=== PATIENT | female | born 1950 | race Caucasian/White ===

== ENCOUNTER 2016-08-31 09:47 | Inpatient (IN) | payer MEDICARE, OTHER ==
[~2016-08-31] VITALS: Ht 152.4 cm; Wt 87.9 kg
--- NOTE | ~2016-08-31 | DS ---
PATIENT'S NAME: AMARILYS SEALS [facility] AGE: 66 Y [address] ROOM: [address] [place] [id number] LOCATION: [facility] [place] ADMIT DATE: 08/31/2016 Discharge Summary DISCHARGE DATE: 09/14/2016 FAMILY PHYSICIAN: Zehra Herring MD ATTENDING PHYSICIAN: Zehra Herring PRINCIPAL DIAGNOSES: 1. Acute hypoxic respiratory failure due to bilateral pneumonia, organism unspecified. 2. Acute exacerbation of chronic obstructive pulmonary disease. 3. Acute blood loss anemia due to hematoma and bleeding into the rectus muscle due to anticoagulation and severe cough. 4. Status post 1 unit packed red blood cell transfusion. 5. Gastroesophageal reflux disease. 6. Coronary artery disease. 7. Hypertension. 8. Hyperlipidemia. 9. Diabetes mellitus. 10. Thrush. SUMMARY: Amarilys is a 66-year-old female who is admitted with acute respiratory failure with hypoxia due to bilateral pneumonia and acute exacerbation of COPD. See my H and P. she has multiple drug allergies and she was placed on vancomycin and aztreonam for broad-spectrum coverage. Her blood sugars were followed closely. She was placed on a sliding scale with insulin. She was given some IV fluids for hydration. Blood cultures done, sputum cultures done, all negative. She was given neb treatments with DuoNeb every 4 hours, albuterol every 2 hours as needed, and oxygen therapy. She is extremely short of breath and really unable to do much physically. She had a very severe violent cough and she had sudden onset of severe abdominal pain. A CT scan revealed a rectus muscle bleed. Her blood thinners were stopped at that point. Her hemoglobin was watched very closely. She did require 1 unit of packed red blood cells. Gradually, her breathing improved. Sputum cultures never did grow out anything and she completed 10 days of IV antibiotics. The episode where she had the bleed was on 09/05/2016. She also had an elevated amylase and lipase at that time, which resolved spontaneously. Cardiac workup at that time was also performed and was negative. Dr. Hillman was consulted with the abdominal bleed and she is to follow conservatively. She was switched from Vanco and Azactam to Rocephin on 09/05/2016 and antibiotic therapy was completed on 09/10/2016. She was given steroids IV and that was gradually tapered to oral steroids as she improved. Neb treatments decreased. She did get significantly agitated and upset. Part of that was she started being here and the other part is that she has to be in control of the situation and a lot of negotiations has to occur. She calmed down on 09/10/2016. Kidney functions were followed throughout her hospital stay. She PATIENT'S NAME: AMARILYS SEALS [facility] AGE: 66 Y [address] ROOM: [place] [address] LOCATION: [facility] [place] ADMIT DATE: 08/31/2016 Discharge Summary DISCHARGE DATE: 09/14/2016 FAMILY PHYSICIAN: Zehra Herring MD ATTENDING PHYSICIAN: Zehra Herring was able to be weaned off oxygen and I was ready to let her go home on 09/13/2016; however, then she developed some pretty severe epigastric pain and tightness. She was given Tums, GI cocktail, nitro, and Percocet. The GI cocktail and the Percocet helped and as of today she is feeling markedly better, her pain is much improved/resolved, she is up and around, she is off oxygen, and is back to baseline. At this time, she is much improved and ready to go home. DISMISSAL: Amarilys is dismissed on 09/14/2016 in improved condition. She will follow a regular/diabetic diet. Her activity will be as tolerated. She has been advised to stay out of the heat humidity as that will exacerbate her COPD. DISMISSAL MEDICATIONS: 1. Welchol 625 mg 2 tablets b.i.d. 2. Diltiazem XR 180 mg daily. 3. Folic acid 0.8 mg twice daily. 4. Lasix 40 mg daily. 5. Plaquenil 200 mg b.i.d. 6. Lantus insulin 5-25 units at h.s., depending on how her sugars are, and 5 units of Humalog as needed for sugars over 160. 7. Lisinopril 5 mg daily. 8. Methotrexate 10 mg b.i.d. on Tuesdays. 9. Lopressor 25 mg tabs 1/2 tablet b.i.d. 10. Nystatin 500,000 units q.i.d. 11. Pantoprazole 40 mg daily. 12. Prednisone 20 mg daily for the next 3 days then back down to 10 mg daily, her usual. 13. Lyrica 50 mg t.i.d. 14. Theophyline 400 mg b.i.d. 15. DuoNebs q.6 h. p.r.n. 16. Combivent 1 spray every 4 hours p.r.n. 17. Tylenol Extra Strength a 1000 mg q.i.d. p.r.n. 18. Tums as needed for pain. 19. Percocet 5/325 1-2 q.6 h. p.r.n. pain. 20. Simethicone gas relief q.i.d. p.r.n. 21. Fosamax 70 mg once weekly. 22. Aspirin 81 mg a day. 23. Effient 5 mg a day. 24. Albuterol nebulizer or inhaler q.4 h. p.r.n. 25. Guaifenesin 800 mg q.i.d. 26. Nitro 0.4 mg sublingual p.r.n. 27. Refresh tears q.i.d. p.r.n. 28. Rolaids p.r.n. 29. CPAP as at home. PATIENT'S NAME: AMARILYS SEALS [facility] AGE: 66 Y [address] ROOM: [place] [address] LOCATION: [facility] [place] ADMIT DATE: 08/31/2016 Discharge Summary DISCHARGE DATE: 09/14/2016 FAMILY PHYSICIAN: Zehra Herring MD ATTENDING PHYSICIAN: Zehra Herring FOLLOW UP: She will follow up with me in 1 week, sooner if problems, will work on getting medications, she needs the Daliresp and Dulera. PROGNOSIS: Prognosis in the short term is good and long-term guarded as she is very susceptible to respiratory infections and exacerbations of COPD. On a positive note, she does remain smoke free for the last several years. MD HARSH CORTEZ/neto /[id number] d: 09/15/16 0257 t: 09/17/16 1733, DISCHARGE SUMMARY
--- NOTE | ~2016-08-31 | HP ---
PATIENT'S NAME: MONSE SEALS [facility] AGE: 66 Y [address] ROOM: [place] [address] [place] [facility] [place]: 08/31/2016 History & Physical DISCHARGE DATE: FAMILY PHYSICIAN: Zehra Herring MD ATTENDING PHYSICIAN: Zehra Herring DATE OF SERVICE: 09/05/2016 CHIEF COMPLAINT: Abdominal wall pain. REVIEW OF RECORD: The patient is a pleasant 66-year-old young lady, who presented to the emergency room on 08/31/2016 complaining of shortness of breath and cough. She has a long-standing history of severe COPD, oxygen dependent. She has recently been treated in the outpatient with two different courses of antibiotics, was admitted to the hospital, found to have a pretty significant right lower lobe pneumonia. She has been on IV antibiotics. They also used aspirin as well as Lovenox for DVT prophylaxis. The patient has had progressive coughing and has developed an abdominal pain, mostly to the left of her lower midline abdominal wall. The patient's hemoglobin is 10.5. Dr. Herring suspected some intraabdominal process. A CT scan was performed, it showed 12 cm left rectus sheath hematoma. No free fluid into the peritoneal cavity. I was asked to render surgical opinion regarding treatment course. The patient says she has never had this before. PAST MEDICAL HISTORY: Illnesses: Adult onset diabetes, coronary artery disease, reflux disease, sleep apnea, COPD, tobacco abuse, rheumatoid arthritis, iron-deficiency anemia. PAST SURGICAL HISTORY: Operations: Laparoscopic cholecystectomy, tonsillectomy, EGD, carpal tunnel, cystoscopy, and heart catheterization. SOCIAL HISTORY: She has a remote smoking history. Quit about 2 years ago. Denies alcohol use. MEDICATION: Her medication list is noted on admission sheet. ALLERGIES: ZITHROMAX, CIPRO, , AND SULFA. PATIENT'S NAME: MONSE SEALS [facility] AGE: 66 Y [address] ROOM: [place] [address] [place] [facility] [place]: 08/31/2016 History & Physical DISCHARGE DATE: FAMILY PHYSICIAN: Zehra Herring MD ATTENDING PHYSICIAN: Zehra Herring REVIEW OF SYSTEMS: She denies any prior episodes of hematomas. Denies any change in her bowel or bladder function. No blood in her stools. PHYSICAL EXAMINATION: GENERAL: A 66-year-old young lady who has some evidence of respiratory distress. She has nasal cannula oxygen. HEENT: Her mucous membranes are dry. NECK: Supple. I do not feel any adenopathy. LUNGS: Have diminished breath sounds. Few crackles in the right base. ABDOMEN: Mildly obese. She has a small incisional hernia at her umbilicus, reducible, only preperitoneal fat likely within it. She has some developing erythema or ecchymosis, just in the left of the lower midline abdominal wall with tenderness on direct palpation. It is not well delineated. EXTREMITIES: No peripheral edema. IMAGING DATA: Review of the CT scan with Dr. Aguilar revealed a 12 cm left rectus sheath hematoma. No extravasation into the peritoneal cavity. IMPRESSION: Abdominal wall hematoma with chronic cough on anticoagulation. Conservative measures, just observation. Serial hemoglobins if there is any change in her vitals. Her hemoglobin now is 10.5. The should reabsorb with time, low chance of breaking into the peritoneal cavity or infection. Thank you very much for allowing us to participate in her care. DAVE LO MD WTS/modl /[id number] D: 237 T: 744 HISTORY & PHYSICAL
--- NOTE | ~2016-08-31 | ER ---
PATIENT'S NAME: MONSE SEALS [facility] AGE: 66 Y [address] ROOM: [place] [address] [place] [facility] [place]: 08/31/2016 ER/Outpatient Report DISCHARGE DATE: FAMILY PHYSICIAN: Zehra Herring MD ATTENDING PHYSICIAN: Zehra Herring Time of Arrival: 0947 hours. Time of Evaluation: 0950 hours. CHIEF COMPLAINT: Shortness of breath and cough. HISTORY OF PRESENT ILLNESS: The patient is a 66-year-old female, who presents to the emergency department today with chief complaint of shortness of breath and cough. The patient has a long history of COPD. The patient reports she has been having cough and shortness of breath for about a month. She has had 2 different antibiotic courses of doxycycline. She reports about 12 to 18 hours prior to arrival, she developed some worsening symptoms as she was very short of breath, wheezing. She has a nonproductive cough. Denies any fevers. Does report some chills. She is having muscle aches in her arms and shoulders. Denies any nausea or vomiting. No diarrhea or constipation. The patient does report that she takes her oxygen saturations at home and they were in the upper 70s last night and 80s this morning. She does not wear oxygen at home. PAST MEDICAL HISTORY: Adult onset diabetes, coronary artery disease, gastroesophageal reflux disease, obstructive sleep apnea, osteoporosis, dyslipidemia, hypertension, allergic rhinitis, rheumatoid arthritis, coronary artery disease, osteoporosis, neuropathy, and iron deficiency anemia. PAST SURGICAL HISTORY: Heart cath in 2011, carpal tunnel in 1989, cystoscopy in 1969, EGD in 2011 and 2013, cholecystectomy in 1998, wrist and hand surgery, and tonsillectomy. FAMILY HISTORY: Mother with severe peripheral vascular disease, COPD, coronary artery disease, rheumatoid arthritis, and osteoporosis. Father with coronary artery disease. SOCIAL HISTORY: The patient used to smoke very heavily, quit about a year and half ago. Denies any alcohol or illicit drug use. ALLERGIES: AUGMENTIN, ZITHROMAX, CIPRO, AVELOX, OMNI-PAC, AND SULFA. PATIENT'S NAME: MONSE SEALS [facility] AGE: 66 Y [address] ROOM: [place] [address] [place] [facility] [place]: 08/31/2016 ER/Outpatient Report DISCHARGE DATE: FAMILY PHYSICIAN: Zehra Herring MD ATTENDING PHYSICIAN: Zehra Herring MEDICATIONS: 1. Acetaminophen. 2. Combivent. 3. Fosamax. 4. Aspirin. 5. Welchol. 6. Cardizem. 7. Lasix. 8. Prinivil. 9. Methotrexate. 10. Effient. 11. Lyrica. 12. Advair. 13. Germain-Dur. 14. Albuterol. 15. Guaifenesin. 16. Nitrostat. 17. CPAP. 18. Lopressor. 19. Atrovent. 20. Plaquenil. 21. Folic acid. 22. Restore Tears. 23. Gas Relief. 24. Deltasone. 25. Humalog. 26. Lantus. PRIMARY CARE DOCTOR: Zehra Herring M.D. REVIEW OF SYSTEMS: All systems are reviewed by myself and are negative with the exception of those discussed in HPI and past medical history. PHYSICAL EXAMINATION: VITAL SIGNS: Weight 82 kg, blood pressure 138/74, pulse 68, respiratory rate 32, temperature 97.6, and oxygen saturation 89% to 91% on room air. GENERAL: The patient is a 66-year-old female, appears older than stated age, obese, in moderate acute respiratory distress. HEENT: Normocephalic and atraumatic. Pupils are equal, round, and reactive to light. Nares are patent bilaterally. TMs are clear. Oropharynx is clear. NECK: Supple. There is no nuchal rigidity. CARDIOVASCULAR: Regular rate and rhythm. No murmurs, rubs, or gallops. PATIENT'S NAME: MONSE SEALS [facility] AGE: 66 Y [address] ROOM: [address] [address] [place]: [facility] [place] DATE: 08/31/2016 ER/Outpatient Report DISCHARGE DATE: FAMILY PHYSICIAN: Zehra Herring MD ATTENDING PHYSICIAN: Zehra Herring LUNGS: Diminished diffusely with coarse crackles noted. ABDOMEN: Soft, nontender, and nondistended. No rebound, rigidity, or guarding. MUSCULOSKELETAL: The patient moves all 4 extremities. SKIN: Warm and dry. LABORATORY DATA AND X-RAYS: One-view chest x-ray was obtained. There is evidence of patchy bibasilar opacity, greater on the left, consistent with infiltrate and atelectasis. There are emphysematous changes in the lungs. CBC: White blood cell count 11.2, otherwise normal. Coags are normal. CMP is normal. LFT is normal. Magnesium is normal. Cardiac enzymes are normal. EKG is obtained, interpreted by myself at 1025 hours, shows sinus rhythm with a rate of 64, normal axis, WV interval 211, otherwise normal interval. There is T-wave inversions noted in V1, V2, V3. No significant changes from 02/10/2016. ABG; 7.44/43/107/29.2/31/4.5. ProBNP is normal. Lactate is 2.0. D-dimer is normal. Procalcitonin is less than 0.05. IMPRESSION: 1. Bibasilar pneumonia. 2. Acute exacerbation of chronic obstructive pulmonary disease. 3. Acute hypoxic respiratory failure. 4. Initial visit. EMERGENCY DEPARTMENT COURSE: The patient was brought back to the examination room. Seen and evaluated by myself. IV was established. Laboratory analysis and imaging are obtained as described above. The patient was given 2 DuoNeb breathing treatments back to back. The patient was given 125 mg of Solu-Medrol en route by EMS. The patient was given a liter of normal saline. She was started on Azactam 2 grams IV as well as vancomycin 1500 mg IV. I have discussed results with the patient and recommended admission to the hospital for further evaluation, treatment, and management. I have contacted Dr. Zehra Herring, the patient's primary care doctor. She does agree to accept the patient for further evaluation, treatment, and management. DISPOSITION: The patient was admitted under the care of Dr. Herring in stable condition. DO RUSSEL YOUNG/neto PATIENT'S NAME: MONSE SEALS [facility] AGE: 66 Y [address] ROOM: [place] [address] [place]: [facility] [place] DATE: 08/31/2016 ER/Outpatient Report DISCHARGE DATE: FAMILY PHYSICIAN: Zehra Herring MD ATTENDING PHYSICIAN: Zehra Herring /[id number] d: 08/31/16 193 t: 09/03/16 0920, OUTPATIENT REPORT
--- NOTE | ~2016-08-31 | CON ---
PATIENT'S NAME: MONSE SEALS [facility] AGE: 66 Y [address] ROOM: [place] [address] LOCATION: [facility] [place] ADMIT DATE: 08/31/2016 Consultation DISCHARGE DATE: FAMILY PHYSICIAN: Zehra Herring MD ATTENDING PHYSICIAN: Zehra Herring DATE OF CONSULTATION: 09/06/2016 REASON FOR REFERRAL: Respiratory issues. HISTORY OF PRESENT ILLNESS: The patient is a 66-year-old woman with a history of chronic obstructive pulmonary disease. She is hospitalized at this time with an exacerbation of her COPD but also has severe abdominal pain. She was found to have a retroperitoneal hematoma, apparently related to heavy coughing. She also has a pneumonia for which she is under treatment. She had increased O2 requirements last night, which responded to an increase in oxygen delivery. An arterial blood gas did not demonstrate acute ventilatory decompensation. PAST MEDICAL HISTORY: Please refer to the admission history and physical exam. FAMILY HISTORY: Noncontributory. PHYSICAL EXAMINATION: GENERAL: Elderly agitated woman due to pain. ENT: Unremarkable. NECK: Normal. CHEST: Hyperinflated lungs, a few rhonchi. HEART: Regular rate and rhythm. ABDOMEN: Tender to deep palpation. Bowel sounds are present. EXTREMITIES: Mild edema. ASSESSMENT: Exacerbation of chronic obstructive pulmonary disease, pneumonia, abdominal pain due to retroperitoneal hematoma. PLAN: Pain control. We will add guaifenesin to try to thin secretions and make it easier for her to clear them. We will follow with you. [facility] AGE: 66 Y [address] ROOM: [place] [address] LOCATION: [facility] [place] ADMIT DATE: 08/31/2016 Consultation DISCHARGE DATE: FAMILY PHYSICIAN: Zehra Herring MD ATTENDING PHYSICIAN: Zehra Herring MD RYLEE DRUMMOND/neto /[id number] d: 09/06/16 1248 t: 09/11/16 0827, CONSULTATION REPORT
[~2016-08-31 09:47] MED LIST changes: -CLARITIN10 MG PO; -DELTASONE20 M1 PO; -DELTASONE20 MG PO; -DULERA 200 MCG/51 EA INH; -DUONEB INH; -NYSTATIN100000 UNI PO; -PERCOCET 5-3251 EACH PO; -PROTONIX40 MG PO; -ROLAIDS CHEWAB1 EACH PO; -TUMS REGULAR ST1 TAB PO
[2016-08-31 10:13] LABS: BASOPHIL # 0.1 K/uL (0.0-0.2); BASOPHIL % 1.1 %; EOSINOPHIL # 0.4 K/uL (0.0-0.5); EOSINOPHIL % 3.4 %; HEMATOCRIT 40.8 % (33.0-46.0); HEMOGLOBIN 12.5 g/dL (10.0-15.0); IMMATURE GRANULOCYTE # 0.1 K/uL (0.0-0.3); IMMATURE GRANULOCYTE % 0.4 %; LYMPHOCYTE # 1.5 K/uL (0.8-4.0); LYMPHOCYTE % 13.3 %; MCH 24.6 pg (27.0-34.0); MCHC 30.6 gm/dL (32.0-36.5); MCV 80.3 fl (83.0-98.0); MONOCYTE # 0.9 K/uL (0.0-1.0); MONOCYTE % 8.1 %; MPV 8.7 fl (9.4-12.4); NEUTROPHIL # (ANC) 8.2 K/uL (1.8-7.8); NEUTROPHIL % 73.7 %; NRBC % 0 /100WBC (0-0.00); PLATELET COUNT 265 K/uL (150-450); RDW-CV 16.2 % (11.9-14.6); WBC 11.2 K/uL (4.0-11.0)
[2016-08-31 10:14] LABS: RBC 5.08 M/uL (3.50-5.50)
[2016-08-31 10:23] LABS: INR - (THERAPEUTIC) 0.94 (0.92-1.07); PROTIME 9.9 SECONDS (9.8-11.4); PTT 24 SECONDS (25-32)
[2016-08-31 10:32] LABS: ALBUMIN 3.6 gm/dL (3.5-5.0); ALK PHOS 76 IU/L (33-138); ALT 33 IU/L (12-78); ANION GAP 10.7 (10.0-19.0); AST 24 IU/L (10-40); BLOOD UREA NITROGEN 13 mg/dL (6-24); CALCIUM 8.8 mg/dL (8.5-10.5); CHLORIDE 103 mMol/L (96-110); CO2 30 mMol/L (22-32); CPK 116 IU/L (21-215); CREATININE 0.7 mg/dL (0.5-1.1); ESTIMATED GFR (MDRD EQUATION) > 60; MAGNESIUM 2.1 mg/dL (1.8-2.6); POTASSIUM 4.7 mMol/L (3.7-5.1); SODIUM 139 mMol/L (135-145); TOTAL BILIRUBIN 0.5 mg/dL (0.0-1.5); TOTAL PROTEIN 6.9 g/dL (6.0-8.4)
[2016-08-31 10:34] LABS: BICARBONATE 29.2 mmol/L (18.0-23.0); PCO2 43 mmHg (35-45); PO2 107 mmHg (80-90)
--- NOTE | 2016-08-31 13:49 | NUR ---
Pt is 66 y/o female admit for COPD exacerbation for . Has many allergies. See chart. Red and yellow bracelets on. Pt alert and oriented x3. Hx DM but pt eats a regular diet. Resides at home by herself. Hx cardiac stent x1,KS,htn,CHF,hypercholest,sinus prob,diabetic neuropathy,COPD,home neb tx, pneumonia,chronic bronchitis,RA,anemia,leaking/dribbling,stress incontin, cough,DM. Does not wear O2 at home. Pt came through ED.
[2016-08-31] MEDS ORDERED: DUONEB INH (14:31)
[2016-08-31] MEDS ORDERED: PROTONIX40 MG PO (14:35)
[2016-08-31] MEDS ORDERED: ROLAIDS CHEWAB1 EACH PO (14:35)
--- NOTE | 2016-08-31 18:30 | NUR ---
Significant Event: Patient up to floor from E.R. at 1330. Patient on 2 liters of oxygen via nasal cannula. Per orders, patient is also a DNR. Meds restarted per orders except patient only wanted 2 welchol tonight with supper as this is what she does at home, and patient refused lovenox stating that usually Dr. Herring doesn't order it for her because patient will only take lovenox as a hip injection and patient refused to have it in her stomach. Patient also refusing calf pneumatics. IV to patient's right wrist, intact and patent. Patient is on accuchecks AC/HS. Supper blood sugar was 205 and patient got 4 units of novolog per moderate sliding scale. Follow up: Continue to monitor.
--- NOTE | 2016-09-01 04:42 | NUR ---
Patient alert and oriented x3, very pleasant and cooperative, currently on IV antibiotics, took tylenol this shift for back pain, gets short of breath very easily, coughs frequently but unable to bring anything up, lungs have inspiratory wheeze and expiratory wheezes, secondary diagnosis of COPD, up stand by assist to the bathroom, moves around frequenly currently on 3L
[2016-09-01 16:15] LABS: BILIRUBIN URINE NEGATIVE (NEGATIVE); BLOOD URINE NEGATIVE /UL (NEGATIVE); COLOR URINE YELLOW (YELLOW); GLUCOSE URINE 250 mg/dL (NEGATIVE); KETONE URINE NEGATIVE (NEGATIVE); LEUKOCYTES URINE NEGATIVE /UL (NEGATIVE); NITRITE URINE NEGATIVE (NEGATIVE); PROTEIN URINE NEGATIVE (NEGATIVE); SPEC GRAVITY URINE 1.015 (1.003-1.035); TURBIDITY URINE CLEAR (CLEAR); UROBILINOGEN URINE NORMAL (NORMAL)
--- NOTE | 2016-09-01 17:28 | NUR ---
Significant Event: Ambulates with SBA. Tylenol 650mg last at 1300. UA and Sputum cultures obtained and sent to lab this shift. Voids without difficulty. Harsh persistant cough, non productive most of shift. Remains on 3L O2. Accuchecks ACHS. Lung sounds with wheezes and crackles throughout. Follow up:
--- NOTE | 2016-09-02 04:42 | NUR ---
Significant Event: Patient refused the bed alarm, but states she will call if she needs assistance, denies pain. Harsh cough, need sputum sample, lab stated current on was contaminated. On antibiotics. On 3 liters of 02 with RT treatments. Daily weight and strict I/0 Follow up: Continue to monitor.
[2016-09-02 05:14] LABS: HEMATOCRIT 36.9 % (33.0-46.0); HEMOGLOBIN 11.1 g/dL (10.0-15.0); MCH 24.8 pg (27.0-34.0); MCHC 30.1 gm/dL (32.0-36.5); MCV 82.4 fl (83.0-98.0); MPV 9.2 fl (9.4-12.4); PLATELET COUNT 263 K/uL (150-450); RBC 4.48 M/uL (3.50-5.50); RDW-CV 16.5 % (11.9-14.6)
[2016-09-02 05:15] LABS: WBC 18.5 K/uL (4.0-11.0)
[2016-09-02 05:31] LABS: ALBUMIN 3.2 gm/dL (3.5-5.0); ALK PHOS 67 IU/L (33-138); ALT 40 IU/L (12-78); BLOOD UREA NITROGEN 15 mg/dL (6-24); CHLORIDE 110 mMol/L (96-110); CO2 25 mMol/L (22-32); CREATININE 0.6 mg/dL (0.5-1.1); ESTIMATED GFR (MDRD EQUATION) > 60; TOTAL PROTEIN 6.4 g/dL (6.0-8.4)
[2016-09-02 05:36] LABS: ANION GAP 9.6 (10.0-19.0); AST 48 IU/L (10-40); POTASSIUM 4.6 mMol/L (3.7-5.1); SODIUM 140 mMol/L (135-145); TOTAL BILIRUBIN 0.3 mg/dL (0.0-1.5)
[2016-09-02 05:48] LABS: ABSOLUTE NEUTROPHIL CT (ANC) 17.4 K/uL (1.8-7.8); BANDED NEUTROPHIL # 2.2 K/uL (0.0-0.1); BANDED NEUTROPHILS % 12 %; LYMPHOCYTE # 0.9 K/uL (0.8-4.0); LYMPHOCYTE % 5 %; MONOCYTE # 0.2 K/uL (0.0-1.0); SEGMENTED NEUTROPHIL # 15.2 K/uL (1.8-7.8); SEGMENTED NEUTROPHIL % 82 %
--- NOTE | 2016-09-02 16:57 | NUR ---
Significant Event: Independent in room. Tylenol and Gas X for abdominal discomfort. Robitussin for cough. BM X4 per patient report. IV restarted to L) hand. Remains on 3L O2. Follow up:
--- NOTE | 2016-09-03 05:01 | NUR ---
Significant Event: Patient continues with RT treatments, 02 at 3liters, antibiotics. Up to bathroom independently-refused bed alarm. Has harsh cough and wheezes throughout lungs davies. Alert and orientated, pleasant. Denies pain. Follow up: Continue to monitor.
--- NOTE | 2016-09-03 11:55 | NUR ---
Talked with pt nurse, she requests I visit later as pt upset right now over multiple things and nurse calling Dr Herring to talk with pt. Will try to visit this afternoon. Pt known to me, is up ad mynor in the room, and don't anticipate dc planning needs, but Dr Herring asked me to see her to talk about medication access program so I will wait and visit her later to see if she is interested in referral to them.
--- NOTE | 2016-09-03 14:08 | NUR ---
Introduced self and care management services to patient. Known to me from previous admissions. She voices her upset at someone coming in every 10 minutes and telling her what she needs to be doing, told her I am sorry today hasn't been a good day, and that while she doesn't have to do anything for me, I would like to give her information on some resources. Tells me she is aware of all the resources available and doesn't want them. Tells me she is filing for bankruptcy at the end of the month. Told her I am not sure what the conversation was between her and Dr Herring when she was admitted, but Dr Herring did write a consult asking hospice home care coordinator to give pt information on medication access program. She says she is aware of it and has looked into it but still has to spend too much money down to qualify and doesn't want it. Offered to give her a financial assistance form so the hospital can review and reduce her bill if she qualifies after insurance pays and she says she has done that before too and doesn't want to go through it again. Declines all offers of help at this point. Told her thats fine, that if she changes her mind to please ask for a hospice home care coordinator and we will be glad to give her information and help her get connected. She again declines. Her plan is to go home on discharge. Electric Blanket Packer will follow.
--- NOTE | 2016-09-03 17:02 | NUR ---
Significant Event: Independent in room. Very upset this morning, better now. Accuchecks ACHS. Remains on 3L. Follow up:
--- NOTE | 2016-09-03 17:05 | NUR ---
Nurses Note: Patient very upset this morning. Stated that she feels that others are making care decisions for her without her input. Ex: Patient refuses pneumatics and a nurse told her that she needed to wear them to prevent blood clots. She also refuses the IS and flutter valve as they make her cough more, a nurse was encouraging her to use them and the patient felt that the nurse wanted her to cough more and "break her ribs and punture a lung". The patient was then asking that we call Dr Herring and have her come back to the hospital as the patient just wanted to go home. Dr Herring notified and she stated to just allow the patient to calm back down and we were not to let patient leave AMA as she was too sick. Patient started to C/O headache, Morgan and Lyrica given. She then slept for a while and awoke calm.
--- NOTE | 2016-09-04 05:01 | NUR ---
Significant Event: PATIENT IS ALERT AND ORIENTED. ON 3L O2 PER NC. PATIENT IS UP AD DELBERT IN ROOM. USES CALL LIGHT APPROPRIATELY. EXPIRATORY WHEEZES THROUGHOUT. SPUTUM CULTURE OBTAINED LAST P.M. NORCO ADMINISTERED AT 0515 FOR PAIN FOLLOWING COUGHING. VOIDS WITHOUT DIFFICULTY. Follow up:
[2016-09-04 05:03] LABS: HEMATOCRIT 39.9 % (33.0-46.0); HEMOGLOBIN 11.8 g/dL (10.0-15.0); MCH 24.4 pg (27.0-34.0); MCHC 29.6 gm/dL (32.0-36.5); MCV 82.6 fl (83.0-98.0); MPV 9.1 fl (9.4-12.4); PLATELET COUNT 313 K/uL (150-450); RBC 4.83 M/uL (3.50-5.50); RDW-CV 17.1 % (11.9-14.6); WBC 14.5 K/uL (4.0-11.0)
[2016-09-04 05:18] LABS: ANION GAP 12.1 (10.0-19.0); BLOOD UREA NITROGEN 18 mg/dL (6-24); CALCIUM 8.1 mg/dL (8.5-10.5); CHLORIDE 104 mMol/L (96-110); CO2 30 mMol/L (22-32); CREATININE 0.8 mg/dL (0.5-1.1); ESTIMATED GFR (MDRD EQUATION) > 60; POTASSIUM 4.1 mMol/L (3.7-5.1); SODIUM 142 mMol/L (135-145)
[2016-09-04 06:17] LABS: ABSOLUTE NEUTROPHIL CT (ANC) 13.6 K/uL (1.8-7.8); BANDED NEUTROPHIL # 0.4 K/uL (0.0-0.1); BANDED NEUTROPHILS % 3 %; LYMPHOCYTE # 0.7 K/uL (0.8-4.0); LYMPHOCYTE % 5 %; MONOCYTE # 0.1 K/uL (0.0-1.0); SEGMENTED NEUTROPHIL # 13.2 K/uL (1.8-7.8); SEGMENTED NEUTROPHIL % 91 %
--- NOTE | 2016-09-04 16:44 | NUR ---
Significant Event: Alert/oriented x 3. Vitals stable. Remains on 3L, short of breath at rest and with activity. Inspiratory/expiratory wheezes throughout. Saline lock to right forearm flushes well. No c/o pain. Up ad mynor in room. Follow up:
--- NOTE | 2016-09-04 22:40 | NUR ---
Patient c/o abdominal pain that came on abruptly. Brenda JUAN had given a Bieber earlier & another Bieber offered, but patient refuses. She thinks she may have gas pain. Brenda JUAN offers ice bags to abdomen & patient tries to use the commode/bathroom to see if she can pass gas.
--- NOTE | 2016-09-04 22:56 | NUR ---
Significant Event: Patient up ad-mynor, receiving RT treatments. Expiratory and inspiratory wheezes, and coarse lung sounds. Accucheck 189 at HS. Multiple brusises to skin from lovenox shot on outer thighs and to bilateral arms from IV's. Started to report pain on right side of abdomen at 2155, [place] 1 tab given at 2205 and ice pack. Follow up: Monitor pain, lungs
--- NOTE | 2016-09-05 | NUR ---
Patient continues to c/o abdominal pain. Reported to charge nurse Lesvia. Dr Jose on-call physican notified & new orders received. Patient thinks that one of the antibiotics is causing this pain & does not want this antibiotic any more. Lung sounds have wheezes. Respiratory has been here given treatments. Patient relieved when she knows that CT scan to be done & also lab work.
[2016-09-05 00:39] LABS: HEMATOCRIT 37.5 % (33.0-46.0); HEMOGLOBIN 11.2 g/dL (10.0-15.0); MCH 24.3 pg (27.0-34.0); MCHC 29.9 gm/dL (32.0-36.5); MCV 81.5 fl (83.0-98.0); MPV 8.9 fl (9.4-12.4); PLATELET COUNT 314 K/uL (150-450); RDW-CV 16.9 % (11.9-14.6); WBC 15.3 K/uL (4.0-11.0)
--- NOTE | 2016-09-05 00:50 | NUR ---
Reports that her abdominal pain is a 22 out of 10 and cannot be reasoned with to rate her pain different. Morphine 2 mg IV given & patient very satisfied with results. She now rates her pain at an 8, and says that she can tolerate this.
[2016-09-05 00:57] LABS: CPK 361 IU/L (21-215)
[2016-09-05 01:01] LABS: BANDED NEUTROPHIL # 0.8 K/uL (0.0-0.1); BANDED NEUTROPHILS % 5 %; LYMPHOCYTE # 1.8 K/uL (0.8-4.0); LYMPHOCYTE % 12 %; MONOCYTE # 0.5 K/uL (0.0-1.0); SEGMENTED NEUTROPHIL # 12.2 K/uL (1.8-7.8); SEGMENTED NEUTROPHIL % 80 %
[2016-09-05 02:34] LABS: CPK 318 IU/L (21-215)
--- NOTE | 2016-09-05 04:20 | NUR ---
Morphine 2 mg IV given for c/o ambdominal pain that she rates an 8 out of 10. Reports that she is feeling way better from when this abdominal pain all started. Rests quietly in bed & remains NPO. Has been able to sleep for some periods of time tonight. She is aware that Dr will come in this morning & discuss her labs & CT results with her.
--- NOTE | 2016-09-05 05:04 | NUR ---
Significant Event:HS accucheck 189. Around 2240 began c/o abdominal pain that she rated a 22 out of 10. Lab work done, EKG & CT of abdomen. Is now NPO. Has been given Morphine 2 mg twice, last @ 0420. 289 IV antibiotic, 820 po & 1650 void. Did have a small BM last evening & a large BM on day shift. Is finally resting now. Is a DNR. IE wheezes. Has been using the bedside commode.
[2016-09-05 06:32] LABS: BASOPHIL % 0.1 %; HEMATOCRIT 34.7 % (33.0-46.0); HEMOGLOBIN 10.5 g/dL (10.0-15.0); IMMATURE GRANULOCYTE # 0.3 K/uL (0.0-0.3); IMMATURE GRANULOCYTE % 1.9 %; LYMPHOCYTE # 0.6 K/uL (0.8-4.0); LYMPHOCYTE % 4.1 %; MCH 24.2 pg (27.0-34.0); MCHC 30.3 gm/dL (32.0-36.5); MCV 80.1 fl (83.0-98.0); MONOCYTE # 0.7 K/uL (0.0-1.0); MONOCYTE % 4.7 %; MPV 8.6 fl (9.4-12.4); NEUTROPHIL # (ANC) 13.7 K/uL (1.8-7.8); NEUTROPHIL % 89.2 %; NRBC % 0 /100WBC (0-0.00); PLATELET COUNT 303 K/uL (150-450); RBC 4.33 M/uL (3.50-5.50); RDW-CV 16.6 % (11.9-14.6); WBC 15.4 K/uL (4.0-11.0)
[2016-09-05 12:52] LABS: HEMATOCRIT 32.3 % (33.0-46.0)
--- NOTE | 2016-09-05 14:16 | NUR ---
A-SCREENED D/T LOS ADMITTED FOR EXAC. OF COPD. LAST EVENING HAD SUDDEN ONSET OF ABD PAIN. CT SHOWED INFERIOR RECTUS SHEATH HEMATOMA. SURGERY CONSULT NOTED. HT: 60 IN. WT: 89.8 KG. BMI: 38.6 LABS REVIEWED: GLU 210, ALB 3.2, AMYLASE/LIPASE ELEVATED MEDS: WELCHOL, AZACTAM, LYRICA, PROTONIX, VANCO, NORMAL SALINE, MORPHINE, LEVEMIR, NORCO, TUMS, EFFIENT, LASIX DIET RX: CLEAR LIQUIDS. PO INTAKE PRIOR TO DIET BEING NPO THIS AM AND THEN CHANGED TO CLEAR LIQUIDS, WAS 75-100%. EST NUTR NEEDS: [id number] KCALS (15-20 KCALS/KG) 68-90 GM PROTEIN (1.5-2.0 GM/KG IBW) 1 ML FLUID/KCAL D-NOT AT NUTRITION RISK; NO NUTRITION DX I-ADVANCE DIET TOLERATED M/E-WILL ASSIST NEEDED
--- NOTE | 2016-09-05 15:55 | NUR ---
Significant Event: Patient alert and oriented. Patient c/o severe abdominal pain this morning and received Morphine 2 mg IV at [address] Herring here this morning and ordered a Morphine RETAIL SUPPORT MANAGER at 0.5 mg/hr with a 0.5mg bolus and a 10 min lockout. Patient had a total of 12.06 mg infused with 29 demands and 18 deliveries. Up to the commode with assist to void. Patient very short of breath with any activity or exertion. O2 at 3 l/nc. New order for Dr Hillman to consult for a rectus sheeth hematoma. Patient started on clear liquids and is tolerating it well. Denies nausea. Midline IV to her L) upper arm for IV Vancomycin which is not compatible with Morphine. Accuchecks have been 174 and 147 with 2 units of Novolog insulin given this morning. Hgb down to 10.5 this morning and 10.0 at noon. New order for Hgb q 6hrs with the next at 1800. We are to call if Hgb is <8.0. Follow up: Monitor pain
[2016-09-05 17:56] LABS: HEMATOCRIT 32.1 % (33.0-46.0); HEMOGLOBIN 9.7 g/dL (10.0-15.0)
[2016-09-05 22:02] LABS: BICARBONATE 33.5 mmol/L (18.0-23.0); PCO2 45 mmHg (35-45)
[2016-09-05 22:05] LABS: PO2 56 mmHg (80-90)
[2016-09-06 00:24] LABS: HEMATOCRIT 34.6 % (33.0-46.0); HEMOGLOBIN 10.2 g/dL (10.0-15.0)
--- NOTE | 2016-09-06 04:55 | NUR ---
Patient alert and oriented x3, at beginng of shift patient was exhausted and having trouble breathing, notified and she had consult done with the utilization review rn, he ordered arterial blood gases to be done, after calling the results he said it was ok to increase her oxygen, she is currently on 5L via nasal canula and is doing well, she has the morphine ANESTHETIC ASSISTANT, antibiotics changed to rocephin only, using commode for toileting due to increase abdominal pain when getting up, patient has a hematoma on an artery in her abdomen, andreat is wanting to go home fiday, refused foot pumps and bed exit alarm, does call for assistance when needed
[2016-09-06 06:16] LABS: HEMATOCRIT 32.9 % (33.0-46.0); HEMOGLOBIN 9.9 g/dL (10.0-15.0)
--- NOTE | 2016-09-06 06:56 | NUR ---
refused is due to abdominal pain
[2016-09-06 12:08] LABS: HEMATOCRIT 32.6 % (33.0-46.0); HEMOGLOBIN 9.8 g/dL (10.0-15.0)
--- NOTE | 2016-09-06 17:04 | NUR ---
AAOx3. Cooperative with cares. Up to BSC; refuses bed alarm. Refused shower/bath. PATRICIA midline s/l'd and LFA IV infusing. PATHOLOGY TECHNOLOGIST Morphine @ 0.5mg/0.5/10min LO. Refused IS and flutter valve, Mucinex, Lyrica, Lasix, Prinivil, Effient. Titrated O2 down to 3Ltrs.
[2016-09-06 18:26] LABS: HEMATOCRIT 31.4 % (33.0-46.0); HEMOGLOBIN 9.5 g/dL (10.0-15.0)
[2016-09-07 00:46] LABS: HEMATOCRIT 21.6 % (33.0-46.0); HEMOGLOBIN 6.5 g/dL (10.0-15.0)
[2016-09-07 06:14] LABS: HEMOGLOBIN 8.9 g/dL (10.0-15.0)
[2016-09-07 06:18] LABS: HEMATOCRIT 28.6 % (33.0-46.0)
--- NOTE | 2016-09-07 07:20 | NUR ---
Significant Event: A&O X3. AMBULATES WITH ONE ASSIST USES BEDSIDE COMMODE. ON 4 L OF O2. FURNITURE INSTALLER MORPHINE 0.5 DEMMAND 0.5 CONTINUOUS 10 MIN LOCK OUT. REFUSES BED ALARMS. VS WNL. REFUSED FOOT PUMPS. Follow up:
--- NOTE | 2016-09-07 16:00 | NUR ---
AAOx3. Cooperative with cares. SBA to BSC. Midline to FRANCISCA w/GBR and fluids TKO w/SENIOR CLINICAL SAS PROGRAMMER Morphine @0.5/0.5/10min LO. On 3liters O2. Scattered ecchymosis; blood thinners held again today. VSS, afebrile, denies N/V/D. No PRN meds given.
[2016-09-08 05:23] LABS: HEMATOCRIT 25.1 % (33.0-46.0); HEMOGLOBIN 7.5 g/dL (10.0-15.0)
--- NOTE | 2016-09-08 08:18 | NUR ---
Significant Event: Pt alert and oriented. Cont morphine ENVIRONMENTAL HEALTH TECHNICIAN. Refuses to have bed alarm and pneumatics on. Cont on 3 liters 02, lungs remain wheezy. At shift change this morning pt was angry and upset, Dr. Cuevas in to talk with pt. Follow up:
--- NOTE | 2016-09-08 19:09 | NUR ---
Significant Event: Patient alert and oriented. Patient was very angry this morning and thought the COMBINATION MAN "was laughing at me" and did not want her in the room. As the day progressed patient became more cooperative and pleasant. Dr Cuevas here this morning and ordered patient to have a bar, Lasix 40 mg IV x 2 doses with the last at 1640 and patient to receive 1 unit of PRBC's for a Hgb of 7.5. New order for Percocet and 1 tab given x 2 doses with the last at 1358. NUTRITION TEACHER of Morphine changed to demand only with 0.5 mg bolus and a 10 min lockout. Patient had a total of 8.66 mg infused with 17 demands and 10 deliveries. Bruising noted to bilateral hips and lower abdomen, and to bilateral labia and bilateral arms. O2 at 3 l/nc with sats at 87-93%. Patient has a harsh cough and expiratory wheezes bilaterally. Accuchecks were 100, 147 and 260 with 10 units of insulin given. Increased to an aggressive sliding scale of Novolog insulin. Follow up: H&H at [address] if < or = 8.
[2016-09-08 19:42] LABS: HEMATOCRIT 29.8 % (33.0-46.0); HEMOGLOBIN 9.4 g/dL (10.0-15.0)
--- NOTE | 2016-09-09 03:56 | NUR ---
SIGNIFICANT EVENT: Pt alert &oriented. VSS on 3L. Morphine SECURITY STRATEGIST - 0.5 mg demand dose only, 10 minute lockout - 2 demands/2 deliveries for total of 1 mg. Mendez draining light to yellow urine, 3100 out this shift - had 2 doses of IV lasix yesterday. ACHS accuchecks, aggressive SS - HS BG of 195 required 4 units novolog. Rec'd blood yesterday - Hgb 9.4 as of 1937 on 09/08/16. 1PA to transfer. Pleasant and cooperative with cares.
[2016-09-09 05:47] LABS: BASOPHIL % 0.1 %; EOSINOPHIL # 0.1 K/uL (0.0-0.5); EOSINOPHIL % 0.3 %; HEMATOCRIT 31.1 % (33.0-46.0); HEMOGLOBIN 9.4 g/dL (10.0-15.0); IMMATURE GRANULOCYTE # 0.8 K/uL (0.0-0.3); IMMATURE GRANULOCYTE % 4.3 %; LYMPHOCYTE # 1.9 K/uL (0.8-4.0); LYMPHOCYTE % 10.9 %; MCH 24.7 pg (27.0-34.0); MCHC 30.2 gm/dL (32.0-36.5); MCV 81.6 fl (83.0-98.0); MONOCYTE # 1.5 K/uL (0.0-1.0); MONOCYTE % 8.6 %; NEUTROPHIL # (ANC) 13.3 K/uL (1.8-7.8); NEUTROPHIL % 75.8 %; NRBC % 0.3 /100WBC (0-0.00); PLATELET COUNT 354 K/uL (150-450); RBC 3.81 M/uL (3.50-5.50); RDW-CV 16.3 % (11.9-14.6)
[2016-09-09 05:48] LABS: WBC 17.6 K/uL (4.0-11.0)
[2016-09-09 05:59] LABS: ANION GAP 9.6 (10.0-19.0); BLOOD UREA NITROGEN 17 mg/dL (6-24); CHLORIDE 101 mMol/L (96-110); CO2 32 mMol/L (22-32); CREATININE 0.6 mg/dL (0.5-1.1); ESTIMATED GFR (MDRD EQUATION) > 60; POTASSIUM 3.6 mMol/L (3.7-5.1); SODIUM 139 mMol/L (135-145)
[2016-09-09 12:54] LABS: HEMOGLOBIN 8.1 g/dL (10.0-15.0)
[2016-09-09 12:55] LABS: HEMATOCRIT 26.4 % (33.0-46.0)
--- NOTE | 2016-09-09 19:16 | NUR ---
Significant Event: Patient alert and oriented and has been cooperative with cares. Patient again irritable/angry regarding care when talking to Dr Cuevas this morning. Patient was more pleasant the remainder of the shift. Patient was in the recliner during bedside report this morning and she attempted to get out of the chair this afternoon to go back to bed and the TABS alarm went off and the patient got very upset that someone put the alarm pad in the chair and it "scared me". Assisted to back to bed with 2 assist and transferred fair. Patient short of breath with minimal exertion. Mendez patent and drains clear yellow urine with a total of 1100 ml out for the shift. Morphine GUITAR MAKER to demand only and she had a total of 1 mg infused with 2 demands and deliveries. Percocet 1 tab given x 2 doses with the last at 1649. Hgb at 9.4 this morning. Muceninx dc'd per patient request. Prednisone decreased to 20 mg daily. Follow up:
--- NOTE | 2016-09-10 02:15 | NUR ---
SIGNIFICANT EVENT: Pt alert & oriented to place/person. VSS on 2L. Diabetic diet. Mendez patent, draining yellow urine. 2PA to transfer - bedside commode and chair. L) UA midline infusing NS at 20 mL/hr, intermittent IV antibiotics. No aggressive SS coverage for HS BG of 115. ACHS accuchecks. C/O staff not being in her room enough and that she hasn't had a bedside table (it has been in her room throughout stay).
[2016-09-10 05:52] LABS: HEMATOCRIT 29.4 % (33.0-46.0); HEMOGLOBIN 8.9 g/dL (10.0-15.0); MCH 25.1 pg (27.0-34.0); MCHC 30.3 gm/dL (32.0-36.5); MCV 83.1 fl (83.0-98.0); MPV 8.7 fl (9.4-12.4); PLATELET COUNT 301 K/uL (150-450); RBC 3.54 M/uL (3.50-5.50); RDW-CV 16.8 % (11.9-14.6)
[2016-09-10 05:54] LABS: WBC 17.9 K/uL (4.0-11.0)
[2016-09-10 06:07] LABS: BLOOD UREA NITROGEN 13 mg/dL (6-24); CALCIUM 7.6 mg/dL (8.5-10.5); CHLORIDE 105 mMol/L (96-110); CO2 31 mMol/L (22-32); CREATININE 0.5 mg/dL (0.5-1.1); ESTIMATED GFR (MDRD EQUATION) > 60; SODIUM 139 mMol/L (135-145)
[2016-09-10 06:37] LABS: ABSOLUTE NEUTROPHIL CT (ANC) 14.7 K/uL (1.8-7.8); BANDED NEUTROPHIL # 0.4 K/uL (0.0-0.1); BANDED NEUTROPHILS % 2 %; LYMPHOCYTE # 2.7 K/uL (0.8-4.0); LYMPHOCYTE % 15 %; MONOCYTE # 0.5 K/uL (0.0-1.0); SEGMENTED NEUTROPHIL # 14.3 K/uL (1.8-7.8); SEGMENTED NEUTROPHIL % 80 %
--- NOTE | 2016-09-10 16:56 | NUR ---
Significant Event: A/O X 3, this morning was very agitated and uncooperative. Mendez dc'd, CLAIMS ATTORNEY discontinued and allowed to ambulate in room. Mood was much better this afternoon. Gave 1 percocet at 0830 and 1530 with relief. Oxygen at 2 liters per NC. Short of breath with activity, power glide to L) upper arm. ACHS accuchecks with aggressive SS. 2 units given at 1700 blood glucose of 180. Scattered ecchymosis to arms, sides and legs. 2+ edema to lower extremities. WBC's 17.9 today, Hgb 8.9. Follow up:Pain control, continue plan of care.
--- NOTE | 2016-09-11 03:54 | NUR ---
PT. alert and oriented. 2L of O2 - tried to wean to 1L and sats went down to 85%. SBA/1 assist with walker. NO TENNIS DESK TEAM MEMBER. Mood was good this shift. No PRN pain meds given. 4 units of insulin given at HS. Aggressive sliding scale. Edema in lower extremities. Cooperative and pleasant with cares.
[2016-09-11 13:06] LABS: HEMATOCRIT 30.8 % (33.0-46.0); HEMOGLOBIN 9.5 g/dL (10.0-15.0)
[2016-09-11 13:18] LABS: BLOOD UREA NITROGEN 13 mg/dL (6-24); CALCIUM 8.3 mg/dL (8.5-10.5); CHLORIDE 108 mMol/L (96-110); CO2 22 mMol/L (22-32); CREATININE 0.5 mg/dL (0.5-1.1); ESTIMATED GFR (MDRD EQUATION) > 60; SODIUM 139 mMol/L (135-145)
--- NOTE | 2016-09-11 18:58 | NUR ---
I HAVE REVIEWED AND RANDI WITH CHARTING COMPLETED BY [facility] STUDENT HARJINDER VELARDE FROM [id number] JULIA JUAN
--- NOTE | 2016-09-11 19:07 | NUR ---
Significant Event: Patient alert and oriented x3. DNR but "may intubate for short time". Vital signs stable, slightly elevated BPs. On 2L O2. Pain rated at 8 throughout day, first stating abdominal pain, later with addition of leg pain. Percocet given at 0900 and 1455. L) midline saline locked. Daily weight taken on day shift 88.2 kg. Standby assist but patient does not use call light when ambulating or up to bathroom. Refuses bed alarm. Accuchecks ACHS, aggressive sliding scale. Patient refused therapy, up ad mynor in room. Diabetic diet, patient ate half of breakfast, most of lunch. Patient began first dose of Methotraxate this morning, hazardous drugs x48 hours. Follow Up: Wean O2, continue to monitor. Labs in am.
--- NOTE | 2016-09-12 02:56 | NUR ---
Alert and oriented. Cooperative pamela cares, likes to think she is calling the shots. Up independently with walker. 2ltr O2. Accuchecks ACHS, aggressive scale. Midline to upper left arm. Percocet Q6H. Continue plan of care, discharge when appropriate (refusing placement, states she is going home).
[2016-09-12 04:38] LABS: HEMATOCRIT 28.6 % (33.0-46.0); HEMOGLOBIN 8.8 g/dL (10.0-15.0)
[2016-09-12 04:52] LABS: ANION GAP 10.3 (10.0-19.0); BLOOD UREA NITROGEN 14 mg/dL (6-24); CHLORIDE 107 mMol/L (96-110); CO2 27 mMol/L (22-32); CREATININE 0.4 mg/dL (0.5-1.1); ESTIMATED GFR (MDRD EQUATION) > 60; POTASSIUM 4.3 mMol/L (3.7-5.1); SODIUM 140 mMol/L (135-145)
--- NOTE | 2016-09-12 13:46 | NUR ---
Reviewed chart and talked with patient. She tells me she is going home tomorrow as long as her blood level hasn't dropped (Hgb). Asked her if she has any concerns about going home or anything I can help her with. She tells me no, that her sister and neighbors can help her with what she needs and she will be fine. Offered option of Home Health following her at home, having nurse check on her, and she says no she doesn't want that. Cantilever Crane Operator will follow.
--- NOTE | 2016-09-12 13:48 | NUR ---
Significant Event: Pt c/o intermittent generalized discomfort, good relief with Percocet. Up ad mynor in room. To wean O2 to keep sat greater than 89%, was 86% on room air but with cough/deep breath, O2 sat was 89%. SOB with activity. Follow up:
--- NOTE | 2016-09-12 16:22 | NUR ---
A - NUTRITION FOLLOW-UP LABS: GLU 126, CREA 0.4, A1C 7.0%. MEDS: AGGRESSIVE SSI, PREDNISONE, LASIX DIET: REGULAR. INTAKE 54% X9 MEALS NOTED. HOWEVER, PT REPORTED VERY GOOD APPETITE, LIKES FOOD HERE. HAD GOOD/HEAVY BREAKFAST THIS MORNING SO SKIPPED LUNCH. DOES NOT USUALLY SKIP LUNCH. PER PT, DOES REQUEST SNACK AT AROUND 3AM EVERY DAY. EST NEEDS: [id number] KCAL, 68-90 GRAMS PROTEIN, FLUID NEEDS: 1ML/KCAL D - NO NUTRITION DIAGNOSIS. M/E - GOAL: PT WILL CONTINUE TO TOLERATE >75% OF MEALS IN 5-7 DAYS.
--- NOTE | 2016-09-13 04:25 | NUR ---
Significant Event: Patient is alert and oriented x 3. Up ad mynor in room. SOB with activity. Harsh, wet cough noted. BM x 1 this shift. Midline IV to left upper arm, saline locked. Percocet given for pain last at 0210. ACHS accuchecks. Patient is pleasant and cooperative with cares. Follow up:
[2016-09-13 09:31] LABS: HEMATOCRIT 29.2 % (33.0-46.0); HEMOGLOBIN 8.9 g/dL (10.0-15.0)
--- NOTE | 2016-09-13 14:34 | NUR ---
Significant Event: O2 sat 89-94% on room air. SOB with activity. Up ad mynor in room. Around 1015 pt c/o midsternal dull pain, VS stable. Dr. Herring came in and saw her, tums given and an RT tx at that time with min relief. EKG done and Nitro sub-lingual given x1 at 1115 with min relief, VS still WNL. MD notified, gave Percocet 2 tabs at 1240 and GI cocktail at 1320 with some relief. Had a large bm. Did have her on 2 liters O2 per MD for about and 1hr. According to night nurse, midline hurt when flushing but no infiltration noted but no blood return noted either. Will monitor pt symptoms. Follow up:
--- NOTE | 2016-09-14 05:18 | NUR ---
Significant Event: A/O X3 AND COOPERATIVE WITH CARES. UP AD DELBERT. SOB WITH ACTIVITY. O2 SATS 88-92% ON 1L/NC, SATS IMPROVED WHEN ASK PATIENT TO COUGH AND TAKE DEEP BREATH. LUNG SOUND CLEAR TO EXPIRATORY WHEEZE. MIDLINE TO L) UPPER ARM FLUSHES WELL AND NO PAIN WHEN FLUSHING. VOIDING WELL AND HAD BM X2 THIS SHIFT. SLEPT WELL THROUGH NIGHT. POSSIBLE DC HOME TODAY. Follow up:
[2016-09-14] MEDS ORDERED: NYSTATIN100000 UNI PO (08:46)
[2016-09-14] MEDS ORDERED: DALIRESP500 MCG PO (08:51)
[2016-09-14] MEDS ORDERED: TUMS REGULAR ST1 TAB PO (08:53)
[2016-09-14] MEDS ORDERED: PERCOCET 5-3251 EACH PO (09:02)
[2016-09-14] MEDS ORDERED: DULERA 200 MCG/51 EA INH (09:22)
--- NOTE | 2016-09-14 10:00 | NUR ---
I have reviewed and agree with charting done by Renee Pathak, [facility] [employer] [facility] student nurse for the shift from 0600 until patient was dismissed at 1020.
== END 2016-09-14 10:18 | disposition disaster alternative care site (69) | DRG 871 ==
LOC: GMED 09:47 → GMSU 11:43
PROVIDERS: Emergency Medicine; Family Medicine; Internal Medicine Pulmonary Disease; ADMIT Family Medicine
DX: A41.9 Sepsis, unspecified organism (principal); J96.01 Acute respiratory failure with hypoxia; K66.1 Hemoperitoneum; J18.9 Pneumonia, unspecified organism; I11.0 Hypertensive heart disease with heart failure; D62 Acute posthemorrhagic anemia; I50.9 Heart failure, unspecified; B37.9 Candidiasis, unspecified; J44.0 Chronic obstructive pulmonary disease with (acute) lower respiratory infection; J44.1 Chronic obstructive pulmonary disease with (acute) exacerbation; M79.81 Nontraumatic hematoma of soft tissue; I25.10 Atherosclerotic heart disease of native coronary artery without angina pectoris; K21.9 Gastro-esophageal reflux disease without esophagitis; E78.5 Hyperlipidemia, unspecified; M06.9 Rheumatoid arthritis, unspecified; E11.9 Type 2 diabetes mellitus without complications; G47.33 Obstructive sleep apnea (adult) (pediatric); Z90.49 Acquired absence of other specified parts of digestive tract; Z88.1 Allergy status to other antibiotic agents; Z88.2 Allergy status to sulfonamides; Z79.82 Long term (current) use of aspirin; Z87.891 Personal history of nicotine dependence
CPT/HCPCS: C1751; J0696; J1650; J1940; J2270; J2920; J2930; J3370; J7030; J7040; J7050; J7512; J8610; P9016; Q9967

== ENCOUNTER → 2016-08-31 | Outpatient (CLI) | payer MEDICARE, OTHER ==
[~2016-08-31] MED LIST: ADVAIR 250-501 EACH INH; ALBUTEROL2.5 MG/31 INH; ARAVA10 MG PO; ASPIRIN EC81 MG PO; ATROVENT HFA12.9 G1 INH; ATROVENT I0.5 MG/2.5 INH; CLARITIN10 MG PO; COMBIVENT RESPIM4 GM INH; CPAP INH; DALIRESP500 MCG PO; DELTASONE10 MG; DELTASONE10 MG PO; DELTASONE20 M1 PO; DELTASONE20 MG PO; DIFLUCAN100 MG PO; DILT-XR180 MG PO; DOXYCYCLINE100 MG PO; DULERA 200 MCG/51 EA INH; DUONEB INH; EFFIENT5 MG PO; FLORAJEN460 MG PO; FOLIC ACID0.8 MG PO; FOLIC ACID1 MG PO; FOSAMAX70 MG PO; GAS RELIEF125 MG PO; GAS RELIEF40 MG/0.6 PO; GLUCOPHAGE1000 MG PO; GLUCOPHAGE500 MG PO; GUAIFENESIN400 MG PO; HUMALOG100 UNIT/1 SUB-Q; HUMALOG100 UNIT/3 SUB-Q; IPRAT-ALBUT 0.5-3 ML INH; LANTUS (IN100 UNIT/M SUB-Q; LANTUS100 UNIT/1 SUB-Q; LASIX40 M1 PO; LOPRESSOR12.5 MG/0. PO; LOPRESSOR25 MG PO; LYRICA50 MG PO; METHOTREXATE2.5 MG PO; MUCINEX D ER T1 EACH PO; NEXIUM40 MG PO; NITROSTAT 0.40.4 MG SL; NITROSTAT0.3 MG SL; NYSTATIN100000 UNI PO; PERCOCET 5-3251 EACH PO; PLAQUENIL200 MG PO; PRINIVIL (ZESTRI5 MG PO; PROTONIX40 MG PO; PROVENTIL INHAL INH; PROVENTIL OR V6.7 GM INH; REFRESH TEARS15 ML OPHTH; ROLAIDS CHEWAB1 EACH PO; SALINE NASAL SP88 ML NOSE; THEOPHYLLINE400 MG PO; TUMS REGULAR ST1 TAB PO; TYLENOL EXTRA500 MG PO; VENTOLIN HFA8 GM INH; WELCHOL625 MG PO
== END | disposition disaster alternative care site (69) ==
LOC: GAMB 09:25
DX: R06.9 Unspecified abnormalities of breathing (principal); Z79.899 Other long term (current) drug therapy
CPT/HCPCS: A0422; A0425; A0427; J2930

== ENCOUNTER 2016-10-02 13:26 | Emergency (ER) | payer MEDICARE, OTHER ==
--- NOTE | ~2016-10-02 | ER ---
PATIENT'S NAME: [facility] AGE: 66 Y [address] ROOM: [place] [address] LOCATION: [facility] ADMIT DATE: 10/02/2016 ER/Outpatient Report DISCHARGE DATE: 10/02/2016 FAMILY PHYSICIAN: Zehra Herring MD ATTENDING PHYSICIAN: Brennan Nolan TIME OF ARRIVAL: 1326 hours. TIME OF EVALUATION: 1327 hours. CHIEF COMPLAINT: Abdominal pain and shortness of breath. HISTORY OF PRESENT ILLNESS: The patient is a 66-year-old female who presents to the emergency department today with a chief complaint of shortness of breath and abdominal pain. She reports upper abdominal pain. It feels somewhat like her pancreatitis. She has also had some shortness of breath and cough, is coughing up some phlegm. Denies any fevers or chills. No nausea or vomiting. No diarrhea or constipation. No blood in her stool. No dark, tarry stools. It is a sharp pain. PAST MEDICAL HISTORY: Adult-onset diabetes, coronary artery disease, gastroesophageal reflux disease, obstructive sleep apnea, osteoporosis, dyslipidemia, hypertension, allergic rhinitis, rheumatoid arthritis, neuropathy, and iron deficiency. PAST SURGICAL HISTORY: Heart cath in 2011, carpal tunnel in 1989, cystoscopy in 1969, EGD in 2011 and 2013, cholecystectomy in 1998, wrist and hand surgery, and tonsillectomy. FAMILY HISTORY: Severe peripheral vascular disease, COPD, coronary artery disease, rheumatoid arthritis, and osteoporosis. Father with coronary artery disease. SOCIAL HISTORY: The patient quit smoking a year and a half ago. Does have a history of heavy smoking use. Denies any alcohol or illicit drug use. ALLERGIES: AUGMENTIN, AZITHROMYCIN, CIPROFLOXACIN, AVELOX, OMNIPAQUE, AND SULFA. MEDICATIONS: PATIENT'S NAME: [facility] AGE: 66 Y [address] ROOM: [place] [address] LOCATION: ED ADMIT DATE: 10/02/2016 ER/Outpatient Report DISCHARGE DATE: 10/02/2016 FAMILY PHYSICIAN: Zehra Herring MD ATTENDING PHYSICIAN: Brennan Nolan Please see list. REVIEW OF SYSTEMS: All systems are reviewed by myself and are negative with the exception of those discussed in the HPI and Past Medical History. PHYSICAL EXAMINATION: VITAL SIGNS: Weight 83.7 kg. Blood pressure 116/65, pulse 74, respiratory rate 20, temperature 98.7, and oxygen saturation 87% on room air. GENERAL: The patient is a 66-year-old female who appears older than stated age, in [id number] acute respiratory distress. HEENT: Normocephalic, atraumatic. Pupils are equal, round, and reactive to light. Extraocular motions are intact. Nares are patent bilaterally. TMs are clear. Oropharynx is clear. NECK: Supple. There is no nuchal rigidity. CARDIOVASCULAR: Regular rate and rhythm. No murmurs, rubs, or gallops. LUNGS: Diminished diffusely. No rales or rhonchi. Positive expiratory wheezes. ABDOMEN: Soft, nontender, and nondistended. No rebound, rigidity, or guarding. MUSCULOSKELETAL: The patient moves all 4 extremities. SKIN: Warm and dry. There are no rashes or lesions noted. LABORATORY AND X-RAY DATA: Urinalysis shows 500 leukocyte esterase and 20 to 50 wbc's. Otherwise, negative. CK and CK-MB are normal, troponin is normal. ProBNP is normal. Coags are normal. Venous blood gas 7.49/38/77/70/5.4. Lactate is normal. CMP is unremarkable. LFTs normal. Amylase and lipase normal. CBC is normal. D-dimer is 1.19. Procalcitonin is less than 0.05. EKG is obtained and shows sinus rhythm with a rate of 70, left axis deviation, SC interval 208, normal interval. No ST elevation. There are T-wave inversions in V1, V2, and V3. CT scan of the chest was obtained. I have discussed the results with the radiologist. It shows no PE. There is some scarring of the right middle lobe in the bases with dependent atelectasis. There is multinodular goiter. CT scan of the abdomen and pelvis was also obtained. I have discussed results with the radiologist. There are 2 fluid cavities on the anterior abdominal wall consistent with the patient's previous hematoma. There is no evidence of gas. IMPRESSION: 1. Acute exacerbation of chronic obstructive pulmonary disease. 2. Anterior abdominal wall hematomas bilaterally. 3. Initial visit. EMERGENCY DEPARTMENT COURSE: PATIENT'S NAME: [facility] AGE: 66 Y [address] ROOM: [place], [place] [address] LOCATION: [facility] ADMIT DATE: 10/02/2016 ER/Outpatient Report DISCHARGE DATE: 10/02/2016 FAMILY PHYSICIAN: Zehra Herring MD ATTENDING PHYSICIAN: Brennan Nolan The patient was brought back to the examination room. Seen and evaluated by myself. IV was established. Laboratory analysis and imaging were obtained as described above. The patient was given DuoNeb breathing treatment with improvement in the patient's respiratory status. Her abdominal exam was repeated. She continues to have a nonsurgical abdominal exam at this time. She was given 125 mg of Solu-Medrol IV. I have discussed results with the patient. She is requesting to go home at this time. She reports her respiratory distress is at her baseline. She is very insistent on going home at this time. I have discussed with her and have written prescriptions for prednisone and doxycycline as well as Percocet, dispensing #10. I have discussed following up with Dr. Herring in 2 to 3 days for re-evaluation. Discussed return to care instructions including worsening symptoms or any other concerns, to return to the emergency department as soon as possible. The patient is agreeable. Her friend is agreeable who is here as well. They are without further questions at this time. DISPOSITION,: The patient is discharged to home in good condition. DO RUSSEL YOUNG/treverl /[id number] d: 10/02/16 1816 t: 10/03/16 0858, OUTPATIENT REPORT
[~2016-10-02 13:26] MED LIST changes: +DULERA 200 MCG/51 EA INH; +DUONEB INH; +NYSTATIN100000 UNI PO; +PERCOCET 5-3251 EACH PO; +PROTONIX40 MG PO; +ROLAIDS CHEWAB1 EACH PO; +TUMS REGULAR ST1 TAB PO
[2016-10-02 14:01] LABS: LACTATE 1.3 mEq/L (0.50-1.60); PCO2 38 mmHg (35-45)
[2016-10-02 14:02] LABS: PO2 77 mmHg (80-90)
[2016-10-02 14:03] LABS: BASOPHIL # 0.1 K/uL (0.0-0.2); BASOPHIL % 0.7 %; EOSINOPHIL % 0.4 %; HEMOGLOBIN 11.3 g/dL (10.0-15.0); IMMATURE GRANULOCYTE # 0.1 K/uL (0.0-0.3); IMMATURE GRANULOCYTE % 1.6 %; LYMPHOCYTE # 1.2 K/uL (0.8-4.0); LYMPHOCYTE % 15.7 %; MCHC 30.8 gm/dL (32.0-36.5); MCV 81.7 fl (83.0-98.0); MONOCYTE # 0.8 K/uL (0.0-1.0); MONOCYTE % 10.5 %; MPV 8.7 fl (9.4-12.4); NEUTROPHIL # (ANC) 5.3 K/uL (1.8-7.8); NEUTROPHIL % 71.1 %; NRBC % 0 /100WBC (0-0.00); PLATELET COUNT 316 K/uL (150-450); RDW-CV 16.8 % (11.9-14.6); WBC 7.5 K/uL (4.0-11.0)
[2016-10-02 14:09] LABS: HEMATOCRIT 36.7 % (33.0-46.0); MCH 25.2 pg (27.0-34.0); RBC 4.49 M/uL (3.50-5.50)
[2016-10-02 14:16] LABS: INR - (THERAPEUTIC) 0.94 (0.92-1.07); PROTIME 9.9 SECONDS (9.8-11.4); PTT 24 SECONDS (25-32)
[2016-10-02 14:20] LABS: BILIRUBIN URINE NEGATIVE (NEGATIVE); BLOOD URINE NEGATIVE /UL (NEGATIVE); COLOR URINE YELLOW (YELLOW); GLUCOSE URINE NEGATIVE (NEGATIVE); KETONE URINE NEGATIVE (NEGATIVE); LEUKOCYTES URINE 500 /UL (NEGATIVE); NITRITE URINE NEGATIVE (NEGATIVE); PROTEIN URINE NEGATIVE (NEGATIVE); SPEC GRAVITY URINE 1.005 (1.003-1.035); TURBIDITY URINE CLEAR (CLEAR); UROBILINOGEN URINE NORMAL (NORMAL)
[2016-10-02 14:25] LABS: ALBUMIN 3.5 gm/dL (3.5-5.0); ALK PHOS 82 IU/L (33-138); ALT 27 IU/L (12-78); ANION GAP 12.1 (10.0-19.0); AST 20 IU/L (10-40); BLOOD UREA NITROGEN 18 mg/dL (6-24); CALCIUM 8.4 mg/dL (8.5-10.5); CHLORIDE 104 mMol/L (96-110); CO2 25 mMol/L (22-32); CPK 56 IU/L (21-215); CREATININE 0.6 mg/dL (0.5-1.1); ESTIMATED GFR (MDRD EQUATION) > 60; POTASSIUM 4.1 mMol/L (3.7-5.1); SODIUM 137 mMol/L (135-145); TOTAL PROTEIN 6.8 g/dL (6.0-8.4)
[2016-10-02 14:26] LABS: TOTAL BILIRUBIN 0.4 mg/dL (0.0-1.5)
[2016-10-02 14:30] LABS: BACTERIA URINE RARE (NEGATIVE); EPITHELIAL URINE RARE #/HPF (NEGATIVE); RBC URINE NEGATIVE #/HPF (NEGATIVE); WBC URINE 20-50 #/HPF (NEGATIVE)
== END 2016-10-02 16:52 | disposition disaster alternative care site (69) ==
LOC: GMED 13:26
PROVIDERS: Emergency Medicine
DX: J44.1 Chronic obstructive pulmonary disease with (acute) exacerbation (principal); M79.81 Nontraumatic hematoma of soft tissue; I25.10 Atherosclerotic heart disease of native coronary artery without angina pectoris; K21.9 Gastro-esophageal reflux disease without esophagitis; E11.40 Type 2 diabetes mellitus with diabetic neuropathy, unspecified; E78.5 Hyperlipidemia, unspecified; I10 Essential (primary) hypertension; G47.33 Obstructive sleep apnea (adult) (pediatric); E61.1 Iron deficiency; Z79.4 Long term (current) use of insulin; Z79.82 Long term (current) use of aspirin; Z79.899 Other long term (current) drug therapy; Z88.1 Allergy status to other antibiotic agents; Z88.2 Allergy status to sulfonamides; Z88.8 Allergy status to other drugs, medicaments and biological substances; Z87.891 Personal history of nicotine dependence; Z90.49 Acquired absence of other specified parts of digestive tract; Z98.890 Other specified postprocedural states; Z90.89 Acquired absence of other organs
CPT/HCPCS: J2001; J2930; Q9967

== ENCOUNTER 2016-10-30 06:27 | Inpatient (IN) | payer MEDICARE, OTHER ==
[~2016-10-30] VITALS: Ht 154.9 cm; Wt 86.8 kg
--- NOTE | ~2016-10-30 | HP ---
PATIENT'S NAME: MONSE SEALS [facility] AGE: 66 Y [address] ROOM: [address] [address] LOCATION: [facility] ADMIT DATE: 10/30/2016 History & Physical DISCHARGE DATE: FAMILY PHYSICIAN: Zehra Herring MD ATTENDING PHYSICIAN: Sabrina Zamora DATE OF SERVICE: CHIEF COMPLAINT: Hypoxia and shortness of breath. HISTORY OF PRESENT ILLNESS: The patient is a pleasant 66-year-old female who has known severe COPD with multiple exacerbations. She was seen in the clinic last week and diagnosed with a UTI. She apparently was started on cefdinir and also given Rocephin. The patient states that over the course of taking the cefdinir she felt like her breathing has actually worsened over the last few days. She took a pill at 3:30 this morning and by 5 o'clock was feeling dizzy, had severe sore throat, and difficulty with breath. She presented to the emergency room at that time. She does have Omnicef on her clinic allergy list, but was unaware that the cefdinir was the same medication. PAST MEDICAL HISTORY: Significant for anemia, COPD with multiple exacerbations, diabetes mellitus type 2, esophageal spasm, essential hypertension, hyperlipidemia, hypertension, obstructive sleep apnea on CPAP, and rheumatoid arthritis. PAST SURGICAL HISTORY: Cardiac cath in 2011; carpal tunnel on the right x2, left x1; cystoscopy in ; EGD in 2011; endoscopy also in 2013; gallbladder in October 1998; left thumb trigger finger in the late ; stent placement; and tonsillectomy. CURRENT MEDICATIONS: 1. Acetaminophen 500 mg 2 tablets as needed. 2. Advair 250 one inhalation twice daily. 3. Albuterol nebulizer p.r.n. 4. Fosamax 70 mg weekly. 5. Aspirin 81 mg daily. 6. Cefdinir 300 mg, which she came in on, but is not her routine medication. 7. Combivent nebulizer. 8. DuoNeb. 9. Folic acid 1 mg 2 tablets daily. 10. Humalog per sliding scale. 11. Hydroxychloroquine 200 mg b.i.d. 12. Ipratropium per nebulizer. PATIENT'S NAME: MONSE SEALS [facility] AGE: 66 Y [address] ROOM: [address] [address] LOCATION: [facility] ADMIT DATE: 10/30/2016 History & Physical DISCHARGE DATE: FAMILY PHYSICIAN: Zehra Herring MD ATTENDING PHYSICIAN: Sabrina Zamora 13. Lantus per insulin protocol. 14. Lasix 40 mg 2 tablets daily. 15. Lisinopril 5 mg daily. 16. Lyrica 50 mg 3 times daily. 17. Methotrexate 2.5 mg weekly. 18. Metoprolol 25 mg 1/2 tablet b.i.d. 19. MiraLAX daily. 20. Nitroglycerin p.r.n. 21. Nystatin p.r.n. 22. Percocet 1-2 p.r.n. 23. Protonix 40 mg daily. 24. Prednisone 10 mg daily. 25. Refresh eyedrops. 26. Theophylline 400 mg b.i.d. 27. Welchol 625 mg 3 tablets b.i.d. ALLERGIES: TO PENICILLIN, ZITHROMAX, CIPRO, AVELOX, OMNIPAQUE, AND SULFA. FAMILY HISTORY: Significant for Alzheimer disease in a maternal aunt; mother with anemia as well as rheumatoid arthritis; aunt with melanoma as well as a maternal aunt with uterine cancer; cardiovascular disease in mother, father, and maternal aunt; COPD in mother; diabetes mellitus in uncle; hepatitis C infection, mother; Hyperlipidemia, mother; osteoporosis, mother. SOCIAL HISTORY: No alcohol. Coffee daily. Former smoker. She is . REVIEW OF SYSTEMS: GENERAL: No recent weight loss or weight gain. HEENT: Positive for sore throat. RESPIRATORY: Recent cough, shortness of breath, dyspnea on exertion, and chronic COPD. CARDIOVASCULAR: No chest pain. No palpitations. GI: No nausea, vomiting, diarrhea, constipation, bright red blood per rectum, or melena. : Negative. MUSCULOSKELETAL: Negative. PHYSICAL EXAMINATION: GENERAL: Alert female who is very pleasant and in no acute distress as long as sedentary in bed. HEENT: Mouth is clear. Pupils are reactive. NECK: Supple. PATIENT'S NAME: MONSE SEALS [facility] AGE: 66 Y [address] ROOM: [address] [address] LOCATION: [facility] ADMIT DATE: 10/30/2016 History & Physical DISCHARGE DATE: FAMILY PHYSICIAN: Zehra Herring MD ATTENDING PHYSICIAN: Sabrina Zamora HEART: Regular. LUNGS: Have expiratory wheezes present with diminished sounds in the bases. ABDOMEN: Soft, nontender, and nondistended. : Exam is not done. EXTREMITIES: No clubbing or cyanosis. Very mild edema. LABORATORY DATA: CBC: Hemoglobin of 11.6, white count of 7.7 with normal differential. Thyroid is stable. BMP is stable with glucose of 102. Blood gas; pH of 7.41, pCO2 of 43, PO2 of 62 on room air. Chest x-ray showed chronic pleural effusions, but actually looks better than January. ASSESSMENT: 1. Probable chronic obstructive pulmonary disease exacerbation. 2. Question allergic reaction to the Omnicef. 3. Diabetes. 4. Hyperlipidemia. 5. Hypertension. 6. Coronary artery disease. PLAN: We will admit the patient. She was given Rocephin in the emergency room. I believe she was also given Benadryl. We will have Respiratory Therapy see and currently we are going to hold her Rocephin at this time as I am unsure if this is actually a medication reaction versus a COPD exacerbation. I am going to give her Benadryl orally throughout the next 24 hours. She has received 1 dose of Solu-Medrol, we will do 1 more dose of Solu-Medrol tonight. Dr. Herring to resume care in the morning. MD DORIE MEZAM/modl /[id number] D: 834 T: 553 HISTORY & PHYSICAL
--- NOTE | ~2016-10-30 | ER ---
PATIENT'S NAME: MONSE OCHOA [facility] AGE: 66 Y [address] ROOM: [address] [address] LOCATION: [facility] ADMIT DATE: 10/30/2016 ER/Outpatient Report DISCHARGE DATE: FAMILY PHYSICIAN: Zehra Herring MD ATTENDING PHYSICIAN: Sabrina Zamora CHIEF COMPLAINT: Difficulty breathing. HISTORY OF PRESENT ILLNESS: Ms. Ochoa presents for evaluation of shortness of breath and a cough, and what she feels like is a swollen tongue. The symptoms had been going on for the last several days. They started when she was initiated on a new antibiotic cefdinir. She has been hospitalized multiple times recently. She has a history of very poorly controlled COPD. She states that she is very short of breath and she was working too hard and finally decided she was too tired to keep putting up with it and came in today. She states she did have some breathing treatments at home, but they have not helped her as much as she needs. She is a former smoker, quit 18 months ago. She follows with Dr. Herring for this issue. PAST MEDICAL HISTORY: Documented on the record and reviewed by me. SOCIAL HISTORY: Documented on the record and reviewed by me. MEDICATIONS: Documented on the record and reviewed by me. ALLERGIES: DOCUMENTED ON THE RECORD AND REVIEWED BY ME. REVIEW OF SYSTEMS: All systems were reviewed and negative except as noted in the HPI. PHYSICAL EXAMINATION: VITAL SIGNS: Blood pressure is elevated at 160s, systolic. Pulse is 98, respiratory rate is 28, temperature 97.7, and SpO2 is 85% on room air initially. GENERAL: A frail elderly female, sitting upright on the exam table with very coarse cough and moderate respiratory distress. NEUROLOGIC: The patient is awake and alert. She is very sharp witted. She has no focal deficits. No obvious asymmetry on exam. PATIENT'S NAME: MONSE OCHOA [facility] AGE: 66 Y [address] ROOM: [address] [place] [id number] LOCATION: [facility] ADMIT DATE: 10/30/2016 ER/Outpatient Report DISCHARGE DATE: FAMILY PHYSICIAN: Zehra Herring MD ATTENDING PHYSICIAN: Sabrina Zamora HEENT: Normocephalic and atraumatic. Eyes are PERRL. Oropharynx is clear. Tongue is not enlarged, not edematous. No angioedema. NECK: Supple. No stridor. Trachea is midline. CHEST: Heart is regular. Borderline tachycardia. No murmurs. LUNGS: Very coarse throughout with diffuse wheezes. ABDOMEN: Soft, nontender, and nondistended. BACK: Normal to inspection and palpation. EXTREMITIES: Warm and well perfused. Some edema of the lower extremities. SKIN: Appears to be grossly intact. LABORATORY DATA AND X-RAYS: Chest x-ray, actually improved from most recent. No clear infiltrates, and today, no pneumothorax per my review. Blood gas; pH 7.41, pCO2 is 43, and PO2 is 62 on room air. Sodium, potassium, chloride, and CO2 are all within normal limits. Glucose of 102. Creatinine and LFTs are unremarkable. CBC with no appreciable abnormalities of white count, hemoglobin, or platelets. Free T4 of 0.9. TSH is 3.880. EKG is notable for first-degree heart block, but otherwise sinus rhythm with no acute ischemic abnormalities. No morphologic changes compared to prior EKG from 10/02/2016. IMPRESSION: Chronic obstructive pulmonary disease exacerbation with dyspnea on exertion. EMERGENCY DEPARTMENT COURSE: The patient was seen and evaluated as above. She was given DuoNeb with Xopenex x2 and was feeling at her baseline, however, upon even mild exertion of standing she would desaturate to the upper 80s and with any walking as approximately 15 feet to the restroom, she desaturated to the mid 70s and was very dyspneic at that time. At that time, the decision was made to bring her into the hospital for further evaluation and treatment. Discussed the case with Dr. Zamora, on-call provider for Dr. Herring. Dr. Sabrina Zamora will admit the patient to the hospital for further evaluation and treatment. The patient was given Solu-Medrol in addition to some Benadryl as well as a dose of Rocephin for this issue. All questions answered, and the patient was admitted with no further issues. MD IVONNE LOVE/neto PATIENT'S NAME: MONSE OCHOA [facility] AGE: 66 Y [address] ROOM: [address] [address] LOCATION: [facility] ADMIT DATE: 10/30/2016 ER/Outpatient Report DISCHARGE DATE: FAMILY PHYSICIAN: Zehra Herring MD ATTENDING PHYSICIAN: Sabrina Zamora /[id number] d: 10/30/16 1118 t: 11/13/16 0949, OUTPATIENT REPORT
--- NOTE | ~2016-10-30 | DS ---
PATIENT'S NAME: AMARILYS SEALS [facility] AGE: 66 Y [address] ROOM: [address] [place], [place] [address] LOCATION: [facility]U ADMIT DATE: 10/30/2016 Discharge Summary DISCHARGE DATE: 11/02/2016 FAMILY PHYSICIAN: Zehra Herring MD ATTENDING PHYSICIAN: Sabrina Zamora PRINCIPAL DIAGNOSES: 1. Anaphylactic reaction due to cephalosporin antibiotic to include acute-on- chronic hypoxic respiratory failure. 2. Allergy to cefdinir. 3. Acute exacerbation of chronic obstructive pulmonary disease. 4. Coronary artery disease. 5. Hypertension. 6. Hyperlipidemia. 7. Gastroesophageal reflux disease. 8. Adult-onset diabetes mellitus. 9. Abdominal pain, musculoskeletal. 10. Rheumatoid arthritis. SUMMARY: Amarilys is a 66-year-old female, who in acute respiratory distress. She had been placed on oral cefdinir about 5 days prior to admit. She had significant throat and tongue swelling, hypoxia, difficulty breathing. She was treated with IV steroids, Benadryl, and admitted. Dr. Sabrina Zamora admitted her, please see her H and P. She was maintained on IV Solu-Medrol, oral Benadryl scheduled, and also added oral Claritin. She improved and was able to be weaned off oxygen as of 11/01. She continued on nebulizer treatments and all of her other chronic medical problems were addressed. She is significantly better, has been off oxygen for 24 hours, up and around, and at her usual level of health. At this time, she is ready to go home. DISMISSAL: Amarilys is dismissed on 11/02/2016 in improved condition. Her new medications include: 1. A burst and taper of prednisone. She will be on 40 mg for 2 days, 30 for 2 days, 20 for 2 days, and then back to 10 mg every day. 2. She will also be on loratadine 10 mg every day. 3. Her other home medications are unchanged and include:. a. Aspirin 81 mg a day. b. WelChol 625 b.i.d. c. Diltiazem XR 180 mg a day. d. Folic acid 0.8 mg b.i.d. e. Guaifenesin 800 mg q.i.d. f. Plaquenil 200 mg b.i.d. g. Lispro as needed for elevated sugars. h. Lisinopril 5 mg daily. PATIENT'S NAME: AMARILYS SEALS [facility] AGE: 66 Y [address] ROOM: [id number] [place], [place] [address] LOCATION: [facility]PCU ADMIT DATE: 10/30/2016 Discharge Summary DISCHARGE DATE: 11/02/2016 FAMILY PHYSICIAN: Zehra Herring MD ATTENDING PHYSICIAN: Sabrina Zamora i. Methotrexate 10 mg b.i.d. every Saturday. j. Lopressor 12.5 mg daily. k. Protonix 40 mg a day. l. Effient 5 mg daily. m. Lyrica 50 mg t.i.d. n. Theophylline 400 mg b.i.d. o. DuoNeb treatments every 4 hours as needed. p. Tylenol Extra Strength 1000 mg q.6 hours as needed. q. Alendronate 70 mg weekly. r. Lasix 40 mg daily. s. Albuterol inhaled or nebulized every 2 to 4 hours as needed. t. Nitroglycerin 0.4 mg sublingual p.r.n. u. CPAP at night. I. Refresh Tears q.i.d. v. Lantus as needed for elevated sugars. I. p.r.n. w. Tums p.r.n. x. Percocet p.r.n. She will follow up with me in one week. She will continue to follow a regular cardiac prudent/diabetic diet. Activity will be as tolerated. PROGNOSIS: Fair. MD HARSH CORTEZ/neto /[id number] d: 11/02/16 1227 t: 11/03/16 0833, DISCHARGE SUMMARY
[2016-10-30 06:57] LABS: BASOPHIL # 0.1 K/uL (0.0-0.2); BASOPHIL % 1.4 %; EOSINOPHIL # 0.2 K/uL (0.0-0.5); EOSINOPHIL % 2.3 %; HEMATOCRIT 38.3 % (33.0-46.0); HEMOGLOBIN 11.6 g/dL (10.0-15.0); IMMATURE GRANULOCYTE % 0.4 %; LYMPHOCYTE # 2.3 K/uL (0.8-4.0); LYMPHOCYTE % 29.3 %; MCH 24.6 pg (27.0-34.0); MCHC 30.3 gm/dL (32.0-36.5); MCV 81.1 fl (83.0-98.0); MONOCYTE # 0.9 K/uL (0.0-1.0); MONOCYTE % 11.2 %; MPV 8.6 fl (9.4-12.4); NEUTROPHIL # (ANC) 4.3 K/uL (1.8-7.8); NEUTROPHIL % 55.4 %; NRBC % 0 /100WBC (0-0.00); PLATELET COUNT 261 K/uL (150-450); RBC 4.72 M/uL (3.50-5.50); RDW-CV 16.4 % (11.9-14.6); WBC 7.7 K/uL (4.0-11.0)
[2016-10-30 06:57] LABS: BICARBONATE 27.3 mmol/L (18.0-23.0); PCO2 43 mmHg (35-45); PO2 62 mmHg (80-90)
[2016-10-30 07:11] LABS: ALBUMIN 3.5 gm/dL (3.5-5.0); ALK PHOS 75 IU/L (33-138); ALT 30 IU/L (12-78); ANION GAP 11.9 (10.0-19.0); AST 24 IU/L (10-40); BLOOD UREA NITROGEN 13 mg/dL (6-24); CALCIUM 8.3 mg/dL (8.5-10.5); CHLORIDE 104 mMol/L (96-110); CO2 25 mMol/L (22-32); CREATININE 0.6 mg/dL (0.5-1.1); POTASSIUM 3.9 mMol/L (3.7-5.1); SODIUM 137 mMol/L (135-145); TOTAL PROTEIN 6.7 g/dL (6.0-8.4)
[2016-10-30 07:15] LABS: TOTAL BILIRUBIN 0.3 mg/dL (0.0-1.5)
--- NOTE | 2016-10-30 10:38 | NUR ---
Pt is 66 y/o female admit for COPD exacerbation/acute hypoxia for . Pt alert and oriented x3. Resides at home by herself. Pt states she started taking an antibiotic for a UTI that had Omnicef in it and she didn't realize it did. She noticed she started having increased wheezing and trouble breathing each day she took it longer. Came to ED this am. Hx stent,HI,htn, hypercholest,CHF,CAD,edema,home neb tx,COPD,sleep apnea,gerd,RA,DM,neuropathy in legs and feet.
[2016-10-30 10:50] LABS: BILIRUBIN URINE NEGATIVE (NEGATIVE); BLOOD URINE NEGATIVE /UL (NEGATIVE); COLOR URINE STRAW (YELLOW); GLUCOSE URINE NEGATIVE (NEGATIVE); KETONE URINE NEGATIVE (NEGATIVE); LEUKOCYTES URINE NEGATIVE /UL (NEGATIVE); NITRITE URINE NEGATIVE (NEGATIVE); PROTEIN URINE NEGATIVE (NEGATIVE); SPEC GRAVITY URINE 1.005 (1.003-1.035); TURBIDITY URINE CLEAR (CLEAR); UROBILINOGEN URINE NORMAL (NORMAL)
--- NOTE | 2016-10-30 17:24 | NUR ---
Significant Event:PT ADMITTED WITH SOB AND COPD. O2 IS 95% ON 2L PER NC. UP WITH STANDBY ASSIST TO BR TO VOID. DENIES PAIN. A/O AND TALKATIVE. C/O SOB WITH ACTIVITY. AC AND HS BLOOD SUGARS. ATE MEAL W/O DIFFICULTY. ON ADMISSION C/O SWOLLEN TONGUE BUT STATES THAT HAS RETURNED TO NORMAL AND NO PROBLEMS EATING. INITIAL DOSED MEDS. IV RIGHT HAND. Follow up:
--- NOTE | 2016-10-31 05:37 | NUR ---
Significant Event: A/0X3. PATIENT REFUSED HAVING BED ALARM ON AFTER 2200. RESTED IN BED ALL OF SHIFT. SBA UP TO BR. AFEBRILE. VSS ON 2L. VERY SOB WITH ACTIVITY. EXP WHEEZES THROUGHOUT. PERCOCET GIVEN X2. LAST DOSE WAS AT 0122. PATIENT WAS ABLE TO FIND SOME RELIEF.IV TO R) HAND SL. VOIDED 2250 MLS OUT. 0 BM THIS SHIFT. Follow up: CONTINUE WITH PLAN OF CARE.
--- NOTE | 2016-10-31 12:49 | NUR ---
Pt sleeping. WIll stop back later. She is familiar to me from previous admissions and lives in [place] alone but has a good neighbor friend that helps out if needed and is independent with cares.
--- NOTE | 2016-10-31 17:37 | NUR ---
Significant Event: A/O. VSS on 2L/NC. Up 1 assist. AC/HS accuchecks. Denies pain. Good UOP. no complaints of throat swelling. continue plan of care Follow up:
--- NOTE | 2016-11-01 04:46 | NUR ---
A/O. HR 60s. SBP 110-130s. ROOM AIR TO 2L TROUGHOUT NIGHT. AUDIBLE WHEEZES IV LASIX ORDERED PATIENT REFUSED. REFUSED BED ALARM. REFUSES HELP TO BATHROOM. AD DELBERT SELF. ORDER TO KEEP SATS 88-90%. STATES "IM GETTING MYSELF OUT OF HERE TODAY"
[2016-11-01 10:06] LABS: BILIRUBIN URINE NEGATIVE (NEGATIVE); BLOOD URINE NEGATIVE /UL (NEGATIVE); COLOR URINE YELLOW (YELLOW); GLUCOSE URINE 250 mg/dL (NEGATIVE); KETONE URINE NEGATIVE (NEGATIVE); LEUKOCYTES URINE NEGATIVE /UL (NEGATIVE); NITRITE URINE NEGATIVE (NEGATIVE); PROTEIN URINE NEGATIVE (NEGATIVE); TURBIDITY URINE CLEAR (CLEAR); UROBILINOGEN URINE NORMAL (NORMAL)
--- NOTE | 2016-11-01 13:21 | NUR ---
PT UP TO BR BY SELF, REFUSES TO USE CALL LIGHT. HAD LARGE BM AND VOIDS PER BR. VERY SOB WITH ACCESSORY MUSCLES AND SKIN MOTTLED. 15MINUTES BEFORE SHE RECOVERED AND THEN O2 SATS 88% ON RA. REFUSES O2 MONITOR AND O2.
--- NOTE | 2016-11-01 17:28 | NUR ---
Significant Event:PT A/O. UA SENT TO LAB THIS MORNING AND NEGATIVE. BILATERAL LUNG CONGESTION AND VERY SOB WITH ANY ACTIVITY. DENIES PAIN. O2 SATS DROP INTO LOW 80'S. REFUSES O2 MONITORING AND O2 PER NC. STATES SHE IS FINE AND DOING MUCH BETTER. AC AND HS BLOOD SUGARS. HAD LARGE STOOL X2 TODAY. UP BY SELF. PLAN TO GO HOME TOMORROW. Follow up:
--- NOTE | 2016-11-02 04:36 | NUR ---
A/O. HR 60-70s. SBP 120-150s. ROOM AIR ORDER TO KEEP SATS 88-90%. INDEPENDENT IN ROOM. REFUSES BED ALARM. DENIES PAIN. AFEBRILE. MSU STATUS. POSSIBLE DISMISSAL TODAY.
[2016-11-02] MEDS ORDERED: CLARITIN10 MG PO (11:34)
[2016-11-02] MEDS ORDERED: DELTASONE20 MG PO ×2 (11:37→11:40)
[2016-11-02] MEDS ORDERED: DELTASONE20 M1 PO (11:39)
--- NOTE | 2016-11-02 12:43 | NUR ---
Significant event: Patient is alert and oriented. Calm and cooperative. Up independently. Continues to be SOB on exertion. Left hand IV DC'd by patient accidentally. Discharge instructions reviewed and patient verbalized understanding. Dismissed to front lobby at 1215 accompanied by practical nursing faculty.
--- NOTE | 2016-11-02 14:21 | NUR ---
I did touch base with pt and she is going home and denies any needs. IMM reviewed.
== END 2016-11-02 12:15 | disposition disaster alternative care site (69) | DRG 917 ==
LOC: GMED 06:27 → GPCU 08:59
PROVIDERS: Emergency Medicine; Family Medicine; ADMIT Family Medicine
DX: T36.1X1A Poisoning by cephalosporins and other beta-lactam antibiotics, accidental (unintentional), initial encounter (principal); J96.21 Acute and chronic respiratory failure with hypoxia; J44.1 Chronic obstructive pulmonary disease with (acute) exacerbation; E11.9 Type 2 diabetes mellitus without complications; I10 Essential (primary) hypertension; D64.9 Anemia, unspecified; E78.5 Hyperlipidemia, unspecified; G47.33 Obstructive sleep apnea (adult) (pediatric); I25.10 Atherosclerotic heart disease of native coronary artery without angina pectoris; M06.9 Rheumatoid arthritis, unspecified; Z87.440 Personal history of urinary (tract) infections; K21.9 Gastro-esophageal reflux disease without esophagitis; Z88.1 Allergy status to other antibiotic agents; Z87.891 Personal history of nicotine dependence
CPT/HCPCS: J0696; J1200; J1940; J2930; J7512; J8610